=== PATIENT | male | born 1980 | race Caucasian/White ===

== ENCOUNTER 2017-02-06 21:01 | Emergency (ER) | payer MEDICAID ==
[~2017-02-06] VITALS: Ht 177.8 cm; Wt 99.8 kg
[2017-02-06 21:11] VITALS: BP_SYST 132
--- NOTE | 2017-02-06 21:23 | NUR ---
Patient to ER bed 7 to gown for evaluation. Side rails up. Report given to JAZIEL Lorenzo.
--- NOTE | 2017-02-06 21:25 | NUR ---
Patient AAO x4, sitting bed c/o bite to left inner thigh, area red and swollen, redness is noted to be 10 cm in diameter. Patient states he felt a bug bite him last night and in the morning when he woke up he saw the abscess. Pain to area 5/10. Patient reports he tried baking soda to relieve pain and inflammation to area and it "made it worse." Patient Deaf, comminucating via pencil pad. No acute. distress noted. Will continue to monitor.
--- NOTE | 2017-02-06 21:30 | NUR ---
KB Oconnell at bedside examining patient.
[2017-02-06] MEDS ORDERED: ceFAZolin SODIUM 1 GM VIAL IM ONE (21:45)
[2017-02-06] MEDS ORDERED: LIDOCAINE/PRILOCAINE 5 GM CREAM (EMLA) TP ONE (21:45)
[2017-02-06] MEDS ORDERED: LIDOCAINE/EPI 2% 1:100000 20 ML VIAL IJ ONE (21:45)
[2017-02-06] MEDS ORDERED: SODIUM BICARBONATE 8.4% VIAL 50 MEQ/50 ML VIAL INJ ONE (21:45)
[2017-02-06] MEDS ORDERED: DIPH-TET-PERTUS Vaccine 0.5 ML VIAL (ADACEL) IM ONE (21:45)
--- NOTE | 2017-02-06 21:50 | NUR ---
NP. Oconnell at bedside performing I&D to patient using sterile technique. Patient tolerating procedure well. No acute distress noted. Will continue to monitor.
[2017-02-06 23:05] VITALS: BP_SYST 125
--- NOTE | 2017-02-06 23:05 | NUR ---
Patient given written and verbal discharge instructions and verbalizes understanding. ER MD discussed with patient the results and treatment provided. Patient in stable condition. ID arm band removed. Rx of keflex, bactrim, tylenol, and naproxen given. Patient educated on pain management and to follow up with PMD. Pain Scale 0/10. Opportunity for questions provided and answered.
== END 2017-02-06 23:05 | disposition home or self-care (01) ==
LOC: SED 21:01
DX: L02.416 Cutaneous abscess of left lower limb (principal); Z87.891 Personal history of nicotine dependence
CPT/HCPCS: 10060; 90471; 90715; 96372; 99284; J0690; J7030

== ENCOUNTER 2017-02-08 10:45 | Emergency (ER) | payer MEDICAID ==
[~2017-02-08] VITALS: Ht 177.8 cm; Wt 97.5 kg
[2017-02-08 11:03] VITALS: BP_SYST 140
--- NOTE | 2017-02-08 11:08 | NUR ---
Patient to ER bed 07 to gown for evaluation. Side rails up. Report given to JAZIEL Sweeney.
--- NOTE | 2017-02-08 11:20 | NUR ---
ER at bedside examining patient.
[2017-02-08 11:48] VITALS: BP_SYST 140
--- NOTE | 2017-02-08 11:50 | NUR ---
left thigh wound healing well,no drainage.packing removed by Dr alvarez.covered with 4 x4 gauze.
--- NOTE | 2017-02-08 11:50 | NUR ---
Patient given written and verbal discharge instructions and verbalizes understanding. ER MD discussed with patient the results and treatment provided. Rx of0 given. Patient educated on pain management and to follow up with PMD. Pain Scale [0]. Opportunity for questions provided and answered.
== END 2017-02-08 11:48 | disposition home or self-care (01) ==
LOC: SED 10:45
DX: L02.416 Cutaneous abscess of left lower limb (principal)
CPT/HCPCS: 99282

== ENCOUNTER 2017-02-10 15:51 | Emergency (ER) | payer MEDICAID ==
[~2017-02-10] VITALS: Ht 177.8 cm; Wt 97.5 kg
[2017-02-10 16:15] VITALS: BP_SYST 123
[2017-02-10 16:40] VITALS: BP_SYST 121
[2017-02-10] MEDS ORDERED: FAMOTIDINE 20 MG TABLET PO ONE (16:45)
[2017-02-10] MEDS ORDERED: DEXAMETHASONE SOD PHOSPHATE 10 MG/ML VIAL IM ONE (16:45)
[2017-02-10] MEDS ORDERED: LORATADINE 10 MG TABLET PO ONE (16:45)
== END 2017-02-10 16:40 | disposition home or self-care (01) ==
LOC: SED 15:51
DX: T63.441A Toxic effect of venom of bees, accidental (unintentional), initial encounter (principal); R03.0 Elevated blood-pressure reading, without diagnosis of hypertension; H91.3 Deaf nonspeaking, not elsewhere classified; Y92.89 Other specified places as the place of occurrence of the external cause
CPT/HCPCS: 96372; 99283; J1100

== ENCOUNTER 2017-02-26 13:22 | Emergency (ER) | payer MEDICAID ==
[~2017-02-26] VITALS: Ht 177.8 cm; Wt 95.3 kg
[2017-02-26 13:33] VITALS: BP_SYST 126
[2017-02-26 14:06] LABS: BASOPHILS # (AUTO) 0.1 K/uL (0.0-0.2); BASOPHILS % (AUTO) 1.2 % (0.0-2.0); EOSINOPHILS # (AUTO) 0.5 K/uL (0.0-0.4); EOSINOPHILS % (AUTO) 6.8 % (0.0-4.0); HEMATOCRIT 41.6 % (36-54); HEMOGLOBIN 14.1 g/dL (14.0-18.0); MEAN CORPUSCULAR HEMOGLOBIN 31 pg (27-31); MEAN CORPUSCULAR HGB CONC 34 % (32-36); MEAN CORPUSCULAR VOLUME 91 fL (79.0-98.0); MONOCYTES # (AUTO) 0.6 K/uL (0.0-1.0); NEUTROPHILS # (AUTO) 3.6 K/uL (1.8-7.7); PLATELET COUNT (AUTO) 283 K/uL (130-430); RED BLOOD CELL COUNT(AUTO) 4.57 MIL/uL (4.2-6.2); RED CELL DISTRIBUTION WIDTH 11.8 % (9.0-15.0); WHITE BLOOD COUNT (AUTO) 7.8 K/uL (4.8-10.8)
[2017-02-26 14:21] LABS: CREATININE 1.06 mg/dL (0.55-1.30); POTASSIUM 4.1 mmol/L (3.5-5.1)
[2017-02-26 14:26] LABS: ALBUMIN 3.7 g/dL (3.4-4.8); INR 0.9 (0.80-1.20); PROTHROMBIN TIME 10.1 SECS (9.5-12.5); TOTAL BILIRUBIN 0.5 mg/dL (0.0-1.0); TOTAL PROTEIN, SERUM 7.9 g/dL (6.4-8.3)
[2017-02-26 15:38] VITALS: BP_SYST 120
== END 2017-02-26 15:37 | disposition home or self-care (01) ==
LOC: SED 13:22
DX: L03.116 Cellulitis of left lower limb (principal); J40 Bronchitis, not specified as acute or chronic; H91.90 Unspecified hearing loss, unspecified ear
CPT/HCPCS: 36415; 80053; 85025; 85610-TC; 85730-TC; 99284

== ENCOUNTER 2021-02-01 18:54 | Emergency (ER) | payer MEDICARE, MEDICAID ==
[~2021-02-01] VITALS: Ht 175.3 cm; Wt 113.4 kg
[2021-02-01 19:09] VITALS: BP_SYST 153
--- NOTE | 2021-02-01 19:09 | NUR ---
Patient to ER bed 6 to gown for evaluation. Side rails up. Report given to JAZIEL Lake.
--- NOTE | 2021-02-01 19:14 | NUR ---
Patient's mother, Pallavi, would like to be called with updates at [phone].
--- NOTE | 2021-02-01 19:23 | NUR ---
Patient moved to [facility].
--- NOTE | 2021-02-01 19:25 | NUR ---
Pt brought by family , A&Ox4, pt presents to ER with pain/ burning with urination, pt afebrile, skin pink and warm, cap refill <3, VSS.
[2021-02-01 19:46] LABS: HEMATOCRIT 38.8 % (36-54); HEMOGLOBIN 13.3 g/dL (14.0-18.0); MEAN CORPUSCULAR HEMOGLOBIN 31 pg (27-31); MEAN CORPUSCULAR HGB CONC 34 % (32-36); MEAN CORPUSCULAR VOLUME 91 fL (79.0-98.0); NEUTROPHILS % (AUTO) 42.7 % (40.0-70.0); PLATELET COUNT (AUTO) 247 K/uL (130-430); RED BLOOD CELL COUNT(AUTO) 4.26 MIL/uL (4.2-6.2); RED CELL DISTRIBUTION WIDTH 12.8 % (9.0-15.0); WHITE BLOOD COUNT (AUTO) 8.3 K/uL (4.8-10.8)
[2021-02-01 19:47] LABS: BASOPHILS % (AUTO) 0.3 % (0.0-2.0); EOSINOPHILS # (AUTO) 0.3 K/uL (0.0-0.4); EOSINOPHILS % (AUTO) 3.9 % (0.0-4.0); LYMPHOCYTES # (AUTO) 3.7 K/uL (1.0-5.5); LYMPHOCYTES % (AUTO) 45.1 % (20.5-51.5); MONOCYTES # (AUTO) 0.7 K/uL (0.0-1.0); NEUTROPHILS # (AUTO) 3.5 K/uL (1.8-7.7)
[2021-02-01 19:56] LABS: C-REACTIVE PROTEIN QUANT 0.3 mg/dL (0-0.5)
[2021-02-01 19:58] LABS: PROTHROMBIN TIME 9.8 SECS (9.5-12.5)
[2021-02-01 20:05] LABS: POTASSIUM 4.3 mmol/L (3.5-5.1)
[2021-02-01 20:06] LABS: ALBUMIN 3.9 g/dL (3.4-4.8); CALCIUM 9.1 mg/dL (8.4-11.0); CREATININE 0.9 mg/dL (0.55-1.30); TOTAL BILIRUBIN 0.4 mg/dL (0.0-1.0)
[2021-02-01 20:18] LABS: BILIRUBIN,URINE NEGATIVE (NEGATIVE); BLOOD, URINE NEGATIVE (NEGATIVE); CLARITY/URINE CLEAR (CLEAR); COLOR,URINE YELLOW (YELLOW); GLUCOSE,URINE NEGATIVE (NEGATIVE); KETONES,URINE NEGATIVE (NEGATIVE); LEUKOCYTE ESTERASE ,URINE NEGATIVE (NEGATIVE); NITRITE, URINE NEGATIVE (NEGATIVE); PROTEIN URINE NEGATIVE (NEGATIVE); UROBILINOGEN,URINE 0.2 (0.2-1.0)
[2021-02-01] MEDS ORDERED: OMEP20TA20 PO (20:25)
[2021-02-01 20:42] VITALS: BP_SYST 152
--- NOTE | 2021-02-01 20:43 | NUR ---
Patient given written and verbal discharge instructions and verbalizes understanding. ER MD discussed with patient the results and treatment provided. Patient in stable condition. ID arm band removed. Rx of Omeprazole given. Patient educated on pain management and to follow up with PMD. Pain Scale 2/10 . Opportunity for questions provided and answered. Medication side effect fact sheet provided.
== END 2021-02-01 20:42 | disposition home or self-care (01) ==
LOC: SED 18:54
DX: N34.2 Other urethritis (principal); K29.70 Gastritis, unspecified, without bleeding
CPT/HCPCS: 36415; 80053; 81003; 82150-TC; 83605; 83615-TC; 83690-TC; 85025; 85610-TC; 85730-TC; 86140; 99283

== ENCOUNTER 2021-03-22 20:37 | Emergency (ER) | payer MEDICARE, MEDICAID ==
[~2021-03-22] VITALS: Ht 177.8 cm; Wt 95.3 kg
[~2021-03-22 20:37] MED LIST: OMEP20TA20 PO
[2021-03-22 20:45] VITALS: BP_SYST 155
--- NOTE | 2021-03-22 20:45 | NUR ---
PT TO BED 1 FOR EVALUATION.
--- NOTE | 2021-03-22 20:46 | NUR ---
Came in ER this 40 year old male ambulatory, AAOX2, mute and deaf, communication through written and sign language, breathing spontaneously at room air, not in distress. With chief complaints of bug sting at right upper eyelid since 1100 today and took 1 tab Benadryl at same time and after 5-6 hours his rt eye swollen. Medically/ surgically free. vital signs stable
--- NOTE | 2021-03-22 21:08 | NUR ---
Seen and examined by Dr. BELLO, ER Attending
[2021-03-22] MEDS ORDERED: PRED20TA PO (21:23)
[2021-03-22] MEDS ORDERED: FAMOTIDINE 20 MG TABLET PO ONE (21:30)
[2021-03-22] MEDS ORDERED: predniSONE 20 MG TABLET PO ONE (21:30)
[2021-03-22] MEDS ORDERED: DIPHENHYDRAMINE HCL 25 MG CAPSULE PO ONE (21:30)
--- NOTE | 2021-03-22 21:45 | NUR ---
Medications given as ordered
--- NOTE | 2021-03-22 21:50 | NUR ---
Cmplained of right eye blurry, Dr. Catsrejon made aware and re-assesed the patient, according to wait for 30mins to an hour for observation prior discharge
--- NOTE | 2021-03-22 23:05 | NUR ---
Patient claimed right eye vision no more blurry, Dr. Castrejon made aware and can discharge.
[2021-03-22 23:13] VITALS: BP_SYST 122
--- NOTE | 2021-03-22 23:13 | NUR ---
Patient given written and verbal discharge instructions and verbalizes understanding. ER MD discussed with patient the results and treatment provided. Patient in stable condition. ID arm band removed. Rx of prednisone and epi-pen given. Patient educated to follow up with PMD. Pain Scale 0/10. Opportunity for questions provided and answered. Medication side effect fact sheet provided.
== END 2021-03-22 23:23 | disposition home or self-care (01) ==
LOC: SED 20:37
DX: T63.441A Toxic effect of venom of bees, accidental (unintentional), initial encounter (principal); Z79.899 Other long term (current) drug therapy; Y92.89 Other specified places as the place of occurrence of the external cause
CPT/HCPCS: 99284; J7512; Q0163

== ENCOUNTER 2021-09-25 13:26 | Emergency (ER) | payer MEDICARE, MEDICAID ==
[~2021-09-25 13:26] MED LIST changes: +PRED20TA PO
--- NOTE | 2021-09-25 14:00 | NUR ---
Patient left without being seen.
== END 2021-09-25 14:00 | disposition left against medical advice (07) ==
LOC: SED 13:26
DX: H57.89 Other specified disorders of eye and adnexa (principal); Z53.21 Procedure and treatment not carried out due to patient leaving prior to being seen by health care provider